=== PATIENT | male | born 1980 | race African-American/Black ===

== ENCOUNTER 2017-12-14 20:17 | Emergency (ER) | payer OTHER ==
[~2017-12-14] VITALS: Ht 180.3 cm; Wt 83.0 kg
--- NOTE | 2017-12-14 21:41 | Emergency Room Report ---
History of Present Illness General Chief Complaint: Pain Source: Patient Present Illness HPI This patient states that he gets recurrent pimples all over his body. He states that this has been ongoing for many months. He states they pop-up and he will pop them and they'll go away. He denies fever or chills. He denies nausea or vomiting. He has no other complaints. Allergies: Coded Allergies: No Known Allergies (Unverified , 12/14/17) Patient History Past Medical History: see triage record Social History: Reports: alcohol use, drug use Reviewed Nursing Documentation: PMH: Agreed; PSxH: Agreed Nursing Documentation-PMH Past Medical History: No Stated History Review of Systems All Other Systems: negative except mentioned in HPI Physical Exam Vital Signs Date Time Temp Pulse Resp B/P (MAP) Pulse Ox O2 Delivery O2 Flow Rate FiO2 12/14/17 20:22 97.7 76 14 137/70 98 Room Air 97.7 Sp02 EP Interpretation: reviewed, normal General Appearance: no apparent distress, alert, GCS 15, non-toxic Head: normocephalic, atraumatic Eyes: bilateral eye normal inspection, bilateral eye PERRL ENT: hearing grossly normal, normal pharynx, no angioedema, normal voice Neck: full range of motion, supple/symm/no masses Respiratory: no respiratory distress, no retraction, no accessory muscle use, speaking full sentences Rectal: deferred Musculoskeletal: back normal, gait/station normal, normal range of motion, non- tender Neurologic: alert, oriented x3, responsive, motor strength/tone normal, sensory intact, speech normal Psychiatric: judgement/insight normal, memory normal, mood/affect normal, no suicidal/homicidal ideation Skin: normal color, warm/dry, well hydrated, other - Multiple scattered maculopapular lesions consistent with acne/folliculitis. Medical Decision Making Diagnostic Impression: Primary Impression: Folliculitis ER Course The patient has exam findings consistent with folliculitis. I'll start the patient on a course of oral antibiotics to see if this will help. These appear acne-like. I also educated the patient to use a Hibiclens like shower gel all over his body. Overall, this patient is a benign evaluation. There is no emergency medical condition identified. The patient is given return precautions and follow-up instructions. Last Vital Signs Date Time Temp Pulse Resp B/P (MAP) Pulse Ox O2 Delivery O2 Flow Rate FiO2 12/14/17 20:22 97.7 76 14 137/70 98 Room Air 97.7 Status: improved Disposition: HOME, SELF-CARE Condition: Improved Scripts No Active Prescriptions or Reported Meds Referrals: [facility],REFERRING (PCP) ROSSI NUÑEZ D.O. Dec 14, 2017 21:41
[2017-12-14 21:44] VITALS: BP 137/70
[2017-12-14] MEDS ORDERED: HIBICLENS118 ML TP (21:44)
[2017-12-14] MEDS ORDERED: DOXYCYCLINE MO100 MG ORAL (21:44)
== END 2017-12-14 21:48 | disposition home or self-care (01) ==
LOC: EMR 20:35
DX: L73.9 Follicular disorder, unspecified (principal)
CPT/HCPCS: 99283